=== PATIENT | male | born 1990 | race Caucasian/White ===

== ENCOUNTER 2024-08-03 19:29 | Emergency (ER) | payer SELFPAY ==
[2024-08-03 19:31] VITALS: BP 175/119; PULSE 98; TEMP 36.7; O2SAT 100
--- NOTE | 2024-08-03 19:46 | ED_ITS ---
HPI HPI - General Adult General Chief complaint: Back Pain/Injury Stated complaint: FLANK PAIN Time Seen by Provider: 08/03/24 19:30 Source: patient Mode of arrival: Wheelchair Limitations: no limitations History of Present Illness HPI narrative: This 34-year-old presents for evaluation of acute onset of right flank pain with nausea and dry heaves. He states he has urinated very little today. Pain is in the right flank radiating into the right lower quadrant of his abdomen associated with nausea but no vomiting or diarrhea. He has not had a fever. He denies a history of kidney stones. Upon arrival he is extremely uncomfortable with dry heaves and inability to lie comfortably on the stretcher due to pain in his back. Related Data Home Medications ?Medication ?Instructions ?Recorded ?Confirmed No Known Home Medications 08/03/24 08/03/24 Allergies Allergy/AdvReac Type Severity Reaction Status Date / Time No Known Drug Allergies Allergy Verified 08/03/24 19:36 Opioid HPI Opioid Management Most Recent Opioid Data: Last Pain Scale 7 08/03/24 21:35 08/03/24 Review of Systems ROS Status of ROS 10 or more systems reviewed and unremark able except as noted in history and below Exam Narrative Exam Narrative: Vital signs and Nursing Notes reviewed: Pt is afebrile with a normal pulse, blood pressure is elevated at 175/119, he is not hypoxic with pulse ox of 100% on room air General: Awake, alert, oriented, uncomfortable appearing adult male, he is writhing around on the stretcher unable to get comfortable, he has dry heaves, no active vomiting, no respiratory distress HEENT: Normocephalic atraumatic, mucous membranes are moist and pink, eyes are clear, normal conjunctiva, vision is grossly intact Chest: Lungs are clear to auscultation with good air entry, there is no wheezing rhonchi or rales appreciated no accessory muscle use, patient is speaking in complete sentences-no chest wall tenderness to palpation CVS: Regular rate and rhythm S1-S2, no murmurs rubs or gallops, pulses are brisk and equal bilaterally ABD: Soft, nondistended, tenderness in the right flank and along the distribution of the right ureter and right lower quadrant of the abdomen, negative McBurney's point tenderness. Extremities: Moving all extremities, no lower extremity tenderness or swelling noted, negative Homans' sign, pulses are brisk and equal bilaterally Skin: Normal in appearance without rash,pallor, petechiae or purpura Neuro: No focal deficits Constitutional Vital Signs, click to edit/add: Last Vital Signs Temp 98.0 F 08/03/24 19:31 Pulse 69 08/03/24 21:15 Resp 16 08/03/24 21:15 BP 118/82 08/03/24 21:15 Pulse Ox 97 08/03/24 21:15 Course Vital Signs Vital signs: Vital Signs Temperature 98.0 F 08/03/24 19:31 Pulse Rate 98 H 08/03/24 19:31 Respiratory Rate 22 H 08/03/24 19:31 Blood Pressure 175/119 H 08/03/24 19:31 Pulse Oximetry 100 08/03/24 19:31 Temperature 98.0 F 08/03/24 19:31 Pulse Rate 69 08/03/24 21:15 Respiratory Rate 16 08/03/24 21:15 Blood Pressure 118/82 08/03/24 21:15 Pulse Oximetry 97 08/03/24 21:15 Medical Decision Making [facility] Narrative Medical decision making narrative: This 34-year-old male presents for evaluation of acute onset of right flank pain with radiation into the right lower quadrant associated with nausea and dry heaves. The symptoms started approximately an hour prior to arrival. Upon arrival he was extremely uncomfortable and could not find a comfortable position. His blood pressure was noted to be elevated at 175/119. He is tender in the right flank and right lower quadrant. An IV was placed and he was m edicated with IV fluids, Zofran and Toradol. Routine labs are ordered and are reviewed. His white count is mildly elevated at 13.9. He has a stable hemoglobin. Electrolytes are normal. Urine is negative for infection but shows 50-70 red blood cells per high-power field. On reevaluation his pain is not controlled and he will be medicated with a dose of Dilaudid. CT scan shows a 3 mm stone at the right UVJ. He states his pain is coming back somewhat and he will be given a dose of Percocet prior to discharge. He will be given 2 Percocet and a Zofran to take home tonight and prescriptions for the same as well as Flomax to use at home. He will be referred to outpatient neurology. I encouraged him to drink plenty of fluids and explained that this will hopefully pass in the next 24 to 48 hours. He denies that he needs a note for work. Medical Records Medical records narrative: The [address] [address] [address] Scan Report Signed Patient: DOUG CANTRELL MR#: [id number] : 1990 Acct:[id number] Age/Sex: 34 / M ADM Date: 08/03/24 Loc: ER Attending Dr: Ordering Physician: Ana Guallpa Date of Service: 08/03/24 Procedure(s): CT abdomen pelvis wo con Accession Number(s): [id number] cc: Physician,Non-Staff M.D.~ The [address] [address] Patient Name: DOUG CANTRELL MRN: [id number] date: 1990 Sex: M Assigned Patient Location: ER Current Patient Location: ED.MAIN Accession/Order Number: [id number] Exam Date: 08/03/2024 20:14 Report Date: 08/03/2024 22:36 At the request of: ANA GUALLPA Procedure: CT abdomen pelvis wo con CT ABDOMEN PELVIS WITHOUT CONTRAST HISTORY: Abdominal pain. COMPARISON: None. TECHNIQUE: Thin section axial CT images were obtained from the lung bases to the pubis symphysis. This CT exam was performed using one or more of the following dose reduction techniques: Automated exposure control, adjustment of the mA and/or kV according to patient size, or use of iterative reconstruction technique. Thin section coronal and sagittal images were reconstructed from the axial data set. All images were reviewed and interpreted. CONTRAST: None. FINDINGS: Assessment of solid organs is limited without the benefit of IV contrast. LUNG BASES: The lung bases are clear. GE JUNCTION AND STOMACH: Extensive but debris throughout stomach likely from recent meal ingestion. No gastric wall thickening. Correlate with history. No hiatal hernia. LIVER: Negative. GALLBLADDER AND BILIARY TREE: Normal gallbladder. SPLEEN: Negative. PANCREAS: Negative. ADRENALS: Negative. KIDNEYS AND URETERS: There is acute mild right hydroureteronephrosis present secondary to retained small distal right ureteral calculus at right ureterovesical junction measuring approximately 3 mm. No other calculi seen along the course of the right ureter within the right kidney. No right renal mass or cyst or significant perinephric edema. Mild edematous changes of right renal parenchyma. Left kidney and collecting system are within normal limits without contrast. No left hydronephrosis. No left intrarenal or ureteral calculus. No evidence of left renal mass or cyst. SMALL BOWEL: A few air-filled and fluid-filled small bowel loops in the abdomen mostly left upper quadrant likely reflecting mild ileus. No enteritis or small bowel wall thickening. LARGE BOWEL: Negative. APPENDIX: Changes of prior appendectomy. 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 Correlate with history. AORTA: The abdominal aorta is normal size. IVC: Negative. LYMPH NODES: There is no lymphadenopathy. BLADDER: Normal bladder. BONES: Unremarkable. COMMENTS: No ascites or free air or loculated fluid. CT/CT abdomen pelvis wo con IMPRESSION: 1. Acute right-sided obstructive uropathy secondary to 3 mm calculus distal right ureter at right UVJ causing mild right hydroureteronephrosis. 2. Probable mild small bowel ileus left upper quadrant. 3. Appendectomy. Electronically authenticated by: SANDRA WALDROP Date: 08/03/2024 22:36 Lab Data Lab results reviewed: Yes I reviewed the patient's lab results Labs: Lab Results 08/03/24 08/03/24 Range/Units 19:40 19:54 WBC 13.9 H (4.0-11.0) 10^3/uL RBC 5.00 (4.70-6.10) 10^6/uL Hgb 15.1 (14.0-18.0) g/dL Hct 43.0 (42.0-54.0) % MCV 86.0 (80.0-94.0) fL MCH 30.2 (25.9-34.0) pg MCHC 35.1 (29.9-35.2) g/dL RDW 11.9 (11.0-15.0) % Plt Count 291 (150-450) 10^3/uL MPV 10.3 (9.5-13.5) fL Seg Neuts % (Manual) 44.0 (43.0-75.0) Lymphocytes % (Manual) 25.0 (20.5-60.0) % Atypical Lymphs % (Man) 22.0 % Monocytes % (Manual) 8.0 (1.7-12.0) % Eosinophils % (Manual) 1.0 (0.9-7.0) % Basophils % (Manual) 0.0 L (0.2-2.0) % Neutrophils # (Manual) 6.11 (1.4-6.5) 10^3/uL Lymphocytes # (Manual) 3.47 (1.20-3.80) 10^3/uL Abs Atypical Lymphs Man 3.05 Monocytes # (Manual) 1.11 H (0.30-0.80) 10^3/uL Eosinophils # (Manual) 0.13 (0.00-0.70) 10^3/uL Basophils # (Manual) 0.00 (0.00-0.10) 10^3/uL Sodium 144 (136-145) mmol/L Potassium 3.4 L (3.5-5.1) mmol/L Chloride 106 (98-107) mmol/L Carbon Dioxide 25.0 (21.0-32.0) mmol/L Anion Gap 16.4 BUN 14.0 (7.0-18.0) mg/dL Creatinine 1.28 (0.70-1.30) mg/dL Est GFR ( Amer) >60 (>=60 mL/min/1.73m^2) Est GFR (Non-Af Amer) >60 (>=60 mL/min/1.73m^2) BUN/Creatinine Ratio 10.9 Glucose 109 H (74-106) mg/dL Calcium 8.9 (8.5-10.1) mg/dL Total Bilirubin 0.3 (0.2-1.0) mg/dL AST 15 (15-37) U/L ALT 31 (16-63) U/L Alkaline Phosphatase 66 (46-116) U/L Total Protein 7.1 (6.4-8.2) g/dL Albumin 4.0 (3.4-5.0) g/dL Globulin 3.1 g/dL Albumin/Globulin Ratio 1.3 Urine Color Lt. yellow (YELLOW) Urine Clarity Clear (CLEAR) Urine pH 7.0 (5.0-9.0) Ur Specific [place] 1.020 (1.005-1.025) Urine Protein Negative (NEG/TRACE) mg/dL Urine Glucose (UA) Negative (NEGATIVE) mg/dL Urine Ketones Negative (NEGATIVE) mg/dL Urine Occult Blood Large A (NEGATIVE) Urine Nitrite Negative (NEGATIVE) Urine Bilirubin Negative (NEGATIVE) Urine Urobilinogen 1.0 (0.2-1.0) EU/dL Ur Leukocyte Esterase Negative (NEGATIVE) Urine RBC 50-75 A (0-2) #/HPF Urine WBC 0-2 A (NONE SEEN) #/HPF Ur Squamous Epith Cells None seen (NONE/RARE) #/LPF Urine Crystals None seen (None Seen) #/HPF Urine Bacteria Trace A (NONE SEEN) #/HPF Urine Casts None seen (NONE SEEN) #/LPF Urine Mucus Trace A (NONE SEEN) Ur Culture Indicated? No Discharge Plan Discharge Chief Complaint: Back Pain/Injury Clinical Impression: Renal colic Patient Disposition: Home, Self-Care Time of Disposition Decision: 22:52 Condition: Good Prescriptions / Home Meds: No Action No Known Home Medications Print Language: Slovak Instructions: Renal Colic (ED) Referrals: Physician,Non-Staff, [Primary Care Provider] - 1 week Jeff Lauren MD [Physician] - 1 week
[2024-08-03 19:47] LABS: Hemoglobin 15.1 g/dL (14.0-18.0); Mean Corpuscular HGB Conc 35.1 g/dL (29.9-35.2); Mean Corpuscular Hemoglobin 30.2 pg (25.9-34.0); Mean Platelet Volume 10.3 fL (9.5-13.5); Platelet Count 291 10^3/uL (150-450); Red Cell Distribution Width 11.9 % (11.0-15.0); White Blood Count 13.9 10^3/uL (4.0-11.0)
[2024-08-03] MEDS: ONDANSETRON PF 4 MG/2 ML VIAL IV (19:50)
[2024-08-03] MEDS: 0.9 % SODIUM CHLORIDE 1,000 ML 1000 ML IV (19:50)
[2024-08-03] MEDS: KETOROLAC TROMETHAMINE 30 MG/ML VIAL IVP (19:50)
--- NOTE | 2024-08-03 20:04 | CT_ITS ---
The [address] [address] Patient Name: DOUG CANTRELL MRN: [id number] date: 1990 Sex: M Assigned Patient Location: ER Current Patient Location: [facility] Accession/Order Number: [id number] Exam Date: 08/03/2024 20:14 Report Date: 08/03/2024 22:36 At the request of: JOSE C MARKER Procedure: CT abdomen pelvis wo con CT ABDOMEN PELVIS WITHOUT CONTRAST HISTORY: Abdominal pain. COMPARISON: None. TECHNIQUE: Thin section axial CT images were obtained from the lung bases to the pubis symphysis. This CT exam was performed using one or more of the following dose reduction techniques: Automated exposure control, adjustment of the mA and/or kV according to patient size, or use of iterative reconstruction technique. Thin section coronal and sagittal images were reconstructed from the axial data set. All images were reviewed and interpreted. CONTRAST: None. FINDINGS: Assessment of solid organs is limited without the benefit of IV contrast. LUNG BASES: The lung bases are clear. GE JUNCTION AND STOMACH: Extensive but debris throughout stomach likely from recent meal ingestion. No gastric wall thickening. Correlate with history. No hiatal hernia. LIVER: Negative. GALLBLADDER AND BILIARY TREE: Normal gallbladder. SPLEEN: Negative. PANCREAS: Negative. ADRENALS: Negative. KIDNEYS AND URETERS: There is acute mild right hydroureteronephrosis present secondary to retained small distal right ureteral calculus at right ureterovesical junction measuring approximately 3 mm. No other calculi seen along the course of the right ureter within the right kidney. No right renal mass or cyst or significant perinephric edema. Mild edematous changes of right renal parenchyma. Left kidney and collecting system are within normal limits without contrast. No left hydronephrosis. No left intrarenal or ureteral calculus. No evidence of left renal mass or cyst. SMALL BOWEL: A few air-filled and fluid-filled small bowel loops in the abdomen mostly left upper quadrant likely reflecting mild ileus. No enteritis or small bowel wall thickening. LARGE BOWEL: Negative. APPENDIX: Changes of prior appendectomy. 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 Correlate with history. AORTA: The abdominal aorta is normal size. IVC: Negative. LYMPH NODES: There is no lymphadenopathy. BLADDER: Normal bladder. BONES: Unremarkable. COMMENTS: No ascites or free air or loculated fluid. CT/CT abdomen pelvis wo con IMPRESSION: 1. Acute right-sided obstructive uropathy secondary to 3 mm calculus distal right ureter at right UVJ causing mild right hydroureteronephrosis. 2. Probable mild small bowel ileus left upper quadrant. 3. Appendectomy. Electronically authenticated by: SANDRA WALDROP Date: 08/03/2024 22:36
[2024-08-03 20:06] LABS: Bilirubin Urine NEGATIVE (NEGATIVE); Blood Urine LARGE (NEGATIVE); Clarity Urine CLEAR (CLEAR); Color Urine LT. YELLOW (YELLOW); Glucose Urine UA NEGATIVE (NEGATIVE); Ketones Urine NEGATIVE (NEGATIVE); Leukocyte Esterase Urine NEGATIVE (NEGATIVE); Nitrite Urine NEGATIVE (NEGATIVE); Protein Urine NEGATIVE (NEG/TRACE)
[2024-08-03 20:12] LABS: Alanine Aminotransferase 31 U/L (16-63); Albumin Globulin Ratio 1.3; Alkaline Phosphatase 66 U/L (46-116); Anion Gap 16.4; Aspartate Amino Transferase 15 U/L (15-37); BUN Creatinine Ratio 10.9; Bilirubin Total 0.3 mg/dL (0.2-1.0); Calcium 8.9 mg/dL (8.5-10.1); Chloride 106 mmol/L (98-107); Estimated GFR (African America >60 (>=60 mL/min/1.73m^2); Estimated GFR (Non-African Ame >60 (>=60 mL/min/1.73m^2); Globulin 3.1 g/dL; Glucose 109 mg/dL (74-106); Potassium 3.4 mmol/L (3.5-5.1); Sodium 144 mmol/L (136-145); Total Protein 7.1 g/dL (6.4-8.2)
[2024-08-03 20:13] LABS: Bacteria Urine TRACE #/HPF (NONE SEEN); Cast Seen? NONE SEEN #/LPF (NONE SEEN); Crystals Seen? None Seen #/HPF (None Seen); Mucus Urine TRACE (NONE SEEN); RBC Urine 50-75 #/HPF (0-2); Squamous Epithelial Cell Urine NONE SEEN #/LPF (NONE/RARE); Urine Culture Indicated NO; WBC Urine 0-2 #/HPF (NONE SEEN)
[2024-08-03 20:28] LABS: Atypical Lymphocytes Abs Man 3.05; Eosinophils Absolute Manual 0.13 10^3/uL (0.00-0.70); Lymphocytes Absolute Manual 3.47 10^3/uL (1.20-3.80); Monocytes Absolute Manual 1.11 10^3/uL (0.30-0.80); Segmented Neut Absolute Manual 6.11 10^3/uL (1.4-6.5)
[2024-08-03 21:15] VITALS: BP 118/82; PULSE 69; O2SAT 97
[2024-08-03] MEDS: HYDROMORPHONE HCL 1 MG/ML CARTRIDGE IV (21:35)
[2024-08-03] MEDS: OXYCODONE HCL/ACETAMINOPHEN 5MG/325MG 1 TAB PO (23:27)
[2024-08-03] MEDS: OXYCODONE HCL/ACETAMINOPHEN 5MG/325MG 2 TAB PO (23:28)
[2024-08-03] MEDS: ONDANSETRON 4 MG RAPDIS TABLET SL (23:28)
[2024-08-03 23:30] VITALS: BP 125/72; PULSE 68; O2SAT 98
== END 2024-08-03 23:35 | disposition home or self-care (01) ==
PROVIDERS: Emergency Provider Emergency Medicine
DX: N13.2 Hydronephrosis with renal and ureteral calculous obstruction (principal)
CPT/HCPCS: 36415; 74176; 80053; 81001; 85007; 85027; 96374; 96375; 99285; J1171; J1885; J2405; Q0162